=== PATIENT | male | born 1970 | race Caucasian/White ===

== ENCOUNTER → 2016-05-19 | Outpatient (CLI) | payer BC ==
[~2016-05-19] MED LIST: ASPIRIN81 MG PO; ELIQUIS5 MG PO; GABAPENTIN300 M2 PO; HYDREA500 MG PO; HYDROCODON-ACE1 EAC7 PO; LEVAQUIN750 M1 PO; NO MEDICATIONS; NORCO1 TAB 10/3 PO; XARELTO10 MG PO; XARELTO20 MG PO; ZOLOFT100 MG PO
--- NOTE | ~2016-05-19 | CT134 ---
[facility] A Service of [facility] RADIOLOGY TEXT RESULTS PATIENT: BRENDA EM LOCATION: [facility] : [birth year] UNIT #: [id number] AGE: [address]: Pako Lara MD SEX: M ORDER DR: [id number] [address] [place], [place] [address] [id number] O MR#: [id number] Acc #: [id number] NAME: BRENDA EM : 1970 SEX: M STUDY DATE/TIME: 05/19/2016 12:00 UNIT: [facility] ROOM: STUDY DESCRIPTION: CT Guide Attending Physician: Pako Lara M.D. Ordering Physician: Pako Lara M.D. Primary Care Physician: Primary Care Physician No MEDICAL IMAGING REPORT This report is preliminary unless electronic signature is present EXAM CT-guided bone marrow biopsy. INDICATIONS Myelodysplastic syndrome. PROCEDURE This CT exam was performed with one or more of the following radiation dose reduction techniques: Automatic exposure control, adjustment of mA and/or kV according to patient size, and iterative reconstruction. The risks, benefits, and alternatives to the procedure were explained to the patient, and signed, informed consent was obtained. He was placed prone on the CT scanner gantry. A preliminary CT scan was performed through the region of interest. An appropriate site overlying the patient's left iliac vein was selected. The overlying skin was marked. Patient was prepped and draped in the usual sterile fashion. Time-out was performed as per protocol. Skin and subcutaneous tissues were anesthetized with buffered lidocaine. Bone marrow biopsy needle was advanced into the left iliac bone and repeat CT scan confirmed appropriate trajectory of the needle, which was subsequently advanced further into the bone marrow and a bone marrow aspirate was obtained. Needle was advanced further into the bone marrow and then withdrawn, which yielded an adequate core sample. Patient tolerated the procedure well and there were no immediate complications. He did receive conscious sedation consisting of 5 mg of Versed and 250 mcg of fentanyl and continuous monitoring was provided throughout the procedure. IMPRESSION Technically successful bone marrow biopsy and aspiration as noted above. CT was used during the procedure and permanent images were saved. [facility] A Service of [facility] RADIOLOGY TEXT RESULTS PAT[facility]: [id number] [birth year] UNIT #: [id number] AGE: [address]: Pako Lara MD SEX: M ORDER DR: Dictated by... Marie Barraza M.D. THIS IS AN ELECTRONICALLY VERIFIED REPORT Marie Barraza M.D. at 05/23/2016 9:18 AM AFF/psc TD: 05/21/2016 20:57 JOB #: [id number] MEDICAL IMAGING REPORT COPY
--- NOTE | ~2016-05-19 | XA51 ---
[facility] A Service of [facility] RADIOLOGY TEXT RESULTS PATIENT: BRENDA EM LOCATION: [facility] : 66 UNIT #: [id number] AGE: [address]: Pako Lara MD SEX: M ORDER DR: [id number] [address] [address] [id number] O MR#: [id number] Acc #: [id number] NAME: BRENDA EM : 1970 SEX: M STUDY DATE/TIME: 05/19/2016 12:00 UNIT: [facility] ROOM: STUDY DESCRIPTION: XA BX Bone Marrow Attending Physician: Pako Lara M.D. Ordering Physician: Pako Lara M.D. Primary Care Physician: Primary Care Physician No MEDICAL IMAGING REPORT This report is preliminary unless electronic signature is present EXAM XA BX bone marrow HISTORY Myelodysplastic syndrome. FINDINGS Please see CT GUIDE report for combined text results. Dictated by... Marie Barraza M.D. THIS IS AN ELECTRONICALLY VERIFIED REPORT Marie Barraza M.D. at 05/23/2016 9:23 AM AFF/psc TD: 05/21/2016 21:04 JOB #: [id number] MEDICAL IMAGING REPORT COPY
[2016-05-19 09:38] LABS: HEMATOCRIT 41.2 % (38.0-50.0); HEMOGLOBIN 13.8 gm/dL (13.0-16.0); MEAN CELL VOLUME 86.1 FL (83-96); MEAN CORPUSCULAR HEMOGLOBIN 28.8 PG (28-34); MEAN CORPUSCULAR HGB CONC 33.5 g/dL (30-36); MEAN PLATELET VOLUME 8.7 FL (6.5-11.5); RED BLOOD COUNT 4.78 X10e (3.90-5.60); RED CELL DISTRIBUTION WIDTH 16.5 % (11.0-15.5); WHITE BLOOD COUNT 8.6 X10e3 (4.0-10.5)
[2016-05-19 09:43] LABS: INR 1.1; PARTIAL THROMBOPLASTIN TIME 28.4 SECONDS (23.5-31.3); PROTHROMBIN TIME (PATIENT) 11.9 SECONDS (9.6-11.5)
== END | disposition home or self-care (01) ==
LOC: CIVR 09:00
PROVIDERS: Internal Medicine Medical Oncology
DX: D47.3 Essential (hemorrhagic) thrombocythemia (principal); I26.99 Other pulmonary embolism without acute cor pulmonale; I82.409 Acute embolism and thrombosis of unspecified deep veins of unspecified lower extremity
CPT/HCPCS: 38221; G0364; 36415; 77002; 77012; 85027; 85610; 85730; 88305; 88311; 88313; 99144; 99152; 99153; J2250; J3010

== ENCOUNTER → 2016-06-14 | Outpatient (CLI) | payer BC ==
--- NOTE | ~2016-06-14 | CR63 ---
[facility] A Service of [facility] RADIOLOGY TEXT RESULTS PATIENT: BRENDA EM LOCATION: [facility] : [birth year] UNIT #: [id number] AGE: [address]: Pako Lara MD SEX: M ORDER DR: [id number] [facility] [address] [facility] [place], [place] [address] [id number] O MR#: [id number] Acc #: [id number] NAME: BRENDA EM : 1970 SEX: M STUDY DATE/TIME: 06/14/2016 10:36 UNIT: [facility] ROOM: STUDY DESCRIPTION: CR Chest 2 View Attending Physician: Pako Lara M.D. Referring Physician: Pako Lara M.D. Ordering Physician: Pako Lara M.D. Primary Care Physician: Primary Care Physician No MEDICAL IMAGING REPORT This report is preliminary unless electronic signature is present EXAM Chest x-ray HISTORY Cough, shortness of breath and dizziness with chest and back pain, fever and diaphoresis for the past 1-1/2 weeks. Previous history of pulmonary embolism. TECHNIQUE 2 views of the chest were obtained. FINDINGS PA and lateral examination of the chest upright shows a good expansion of the parenchyma with a normal distribution of the pulmonary vascularity. There is no indication of congestion, effusion, infiltrate, tumor, or nodular density. The pleural reflections and diaphragmatic contours are normal. The cardiac silhouette and mediastinal anatomy is within normal limits. IMPRESSION Normal chest. Dictated by... Lukas Rooney M.D. THIS IS AN ELECTRONICALLY VERIFIED REPORT Lukas Rooney M.D. at 06/14/2016 4:06 PM MYA/mary TD: 06/14/2016 12:12 JOB #: [id number] MEDICAL IMAGING REPORT [facility] A Service of [facility] RADIOLOGY TEXT RESULTS PATIENT: BRENDA EM LOCATION: [facility] : 66 UNIT #: [id number] AGE: [address]: Pako Lara MD SEX: M ORDER DR: Page 1 of 1 COPY
== END | disposition home or self-care (01) ==
LOC: CRAD 10:22
DX: I26.99 Other pulmonary embolism without acute cor pulmonale (principal); I82.409 Acute embolism and thrombosis of unspecified deep veins of unspecified lower extremity; D47.3 Essential (hemorrhagic) thrombocythemia
CPT/HCPCS: 71020

== ENCOUNTER → 2016-11-08 | Outpatient (CLI) | payer BC ==
--- NOTE | ~2016-11-08 | MR17 ---
[facility] A Service of [facility] RADIOLOGY TEXT RESULTS PATIENT: JR BRENDA EM LOCATION: [facility] : 66 UNIT #: [id number] AGE: [address]: Pako Lara MD SEX: M ORDER DR: [id number] [facility] [address]. [place], [place] [address] [id number] O MR#: [id number] Acc #: [id number] NAME: BRENDA EM : 1970 SEX: M STUDY DATE/TIME: 11/08/2016 7:54 UNIT: [facility] ROOM: STUDY DESCRIPTION: MR Brain WWo Contrast Attending Physician: Pako Lara M.D. Referring Physician: Pako Lara M.D. Ordering Physician: Pako Lara M.D. Primary Care Physician: No Primary Care Physician MRI CENTER REPORT This report is preliminary unless electronic signature is present. EXAM MR brain with and without contrast, 11/08/16 PROCEDURE Routine brain MR with and without contrast HISTORY A two week history of dizziness and syncopal episodes, particularly while bending over. FINDINGS There is no MR evidence of acute ischemia or other restricted diffusion. There is no hydrocephalous or extraaxial fluid collection. There is no MR evidence of intracranial hemorrhage. Bone marrow signal is normal. The extracranial soft tissues are normal. Normal flow voids are seen in the cerebral vessels. Brain parenchymal signal is normal. Postcontrast images show no evidence of intracranial mass or abnormal enhancement. IMPRESSION Normal brain MRI with and without contrast. Dictated by... Mateus Mcknight M.D. THIS IS AN ELECTRONICALLY VERIFIED REPORT Mateus Mcknight M.D. at 11/09/2016 4:59 PM ARMIN/kelin TD: 11/08/2016 19:44 [facility] RADIOLOGY TEXT RESULTS PATIENT: JR BRENDA EM LOCATION: [facility] : 66 UNIT #: [id number] AGE: [address]: Pako Lara MD SEX: M ORDER DR: JOB #: [id number] MRI CENTER REPORT Page 1 of 1 COPY
== END | disposition home or self-care (01) ==
LOC: CMRI 07:00
DX: R55 Syncope and collapse (principal); R42 Dizziness and giddiness; I26.99 Other pulmonary embolism without acute cor pulmonale; I82.409 Acute embolism and thrombosis of unspecified deep veins of unspecified lower extremity; D47.3 Essential (hemorrhagic) thrombocythemia
CPT/HCPCS: 70553; A9577